=== PATIENT | female | born 1965 | race Caucasian/White ===

== ENCOUNTER 2016-04-29 10:30 | Outpatient (CLI) | payer MEDICAID ==
[~2016-04-29 10:30] MED LIST: BREO ELLIPTA1 POW IH; BUSPAR 5MG TAB5 MG PO; COREG25 M1 PO; DIFLUCAN 100MG100 MG PO; FLUID PILL PO; HYDRALAZINE HCL25 M1 PO; HYDROCODONE-APA1 TA2 PO; HYDROXYZINE 25M25 MG PO; LORATADINE D 101 T24 PO; LOSARTAN POTAS100 MG PO; METRONIDAZOLE500 MG PO; MINOCYCLINE100 MG PO; NEURONTIN800 MG PO; NICOTINE PATCH;21 MG TD; PAXIL20 MG PO; PERCOCET1 TAB PO; PREDNISONE 20MG20 MG PO; PROMETHAZINE HC25 M1 PO; PROTONIX 40MG T40 MG PO; RANITIDINE300 MG PO; SIMVASTATIN10 MG PO; SINGULAIR10 MG PO; TIZANIDINE HCL 44 MG NG; VALIUM 5MG TABLE5 MG PO; VENTOLIN H0.09 MG/AC IH; XANAX 0.5MG TA0.5 MG PO; ZYRTEC10 M2 PO
[2016-04-29 10:45] VITALS: BP 129/81
[2016-04-29 11:15] VITALS: BP 118/70
[2016-04-29 11:35] VITALS: BP 129/81
== END 2016-04-29 11:30 | disposition home or self-care (01) ==
LOC: COP 10:30
DX: D50.9 Iron deficiency anemia, unspecified (principal); E86.0 Dehydration
CPT/HCPCS: J1756

== ENCOUNTER 2017-04-07 15:54 | Emergency (ER) | payer MEDICAID ==
[~2017-04-07] VITALS: Ht 162.6 cm; Wt 78.0 kg
--- OUTSIDE RECORDS SUMMARY | 2017-04-07 16:18 | External Medical Summary Rpt | CCD ---
Author Author , ANABELLE AHN Address Unknown Phone [email or web address] Purpose Continuity of Care Document - 04-02-2017 through 2016 Problems Code Diagnosis DOS Provider Status D72.829 ELEVATED WHITE BLOOD CELL COUNT, UNSPECIFIED K29.70 GASTRITIS, UNSPECIFIED , WITHOUT BLEEDING Results Labs Lab Lab Date Result Refere Interp Status Commen Order Detail nces retati t Range on Hgb A1c MFr Bld (04-02-2017 09:24) Hgb A1c 5.3 % 4.7-6.0 complet MFr 017 ed Bld 09:24 T pallidum IgG Ser Ql IA (04-02-2017 09:24) T NR complet pallidu 017 NONREAC ed m IgG 09:24 TIVE L Ser Ql IA
--- OUTSIDE RECORDS SUMMARY | 2017-04-07 16:18 | External Medical Summary Rpt | CCD ---
Author Author , ANABELLE AHN Address Unknown Phone [email or web address] Purpose Continuity of Care Document - 04-02-2017 [...]
--- OUTSIDE RECORDS SUMMARY | 2017-04-07 16:19 | External Medical Summary Rpt | CCD ---
Demographics Preferred Language Togolese Marital Status Unknown Baptist Affiliation Unknown Race Unknown Ethnic Group Unknown Author Author , ANABELLE AHN Address Unknown Phone Immunization No patient found.
--- OUTSIDE RECORDS SUMMARY | 2017-04-07 16:19 | External Medical Summary Rpt | CCD ---
Author Author [employer] Organization [employer] Address Unknown Phone Unavailable Purpose Continuity of Care Document - through 2016
--- OUTSIDE RECORDS SUMMARY | 2017-04-07 16:19 | External Medical Summary Rpt ---
Author Author ANABELLE Connolly, [employer] Organization [employer] Address Unknown Phone Unavailable
--- OUTSIDE RECORDS SUMMARY | 2017-04-07 16:19 | External Medical Summary Rpt | CCD ---
Demographics Preferred Language Irish Marital Status Unknown Yazidism Affiliation Unknown Race Unknown Ethnic Group Unknown Author Author , ANABELLE AHN Address Unknown Phone Immunization No patient found.
--- OUTSIDE RECORDS SUMMARY | 2017-04-07 16:19 | External Medical Summary Rpt ---
Author Author ANABELLE Connolly, [employer] Organization [employer] Address Unknown Phone Unavailable
--- NOTE | 2017-04-07 17:26 | RADIOLOGY REPORT PS360 ---
CT HEAD W/O CONTRAST HISTORY: BRAIN SHUNT, STIFFNESS, PAINFUL HEADACHE ORDERING PHYSICIAN: Lon Pacheco MD PATIENT AGE: 51 years COMPARISON: 11/24/2016 TECHNIQUE: Axial images obtained without contrast. Brain and bone windows reviewed. FINDINGS: Postsurgical changes are present with prior suboccipital craniotomy with artifact. Right-sided ventriculostomy tube once again noted entering from the right parietal lobe traversing anteriorly through the posterior aspect of the anterior horn of the lateral ventricle and then traversing inferiorly residing in the region of the third ventricle. This is not significantly changed. The right ventricle is smaller than the left however neither ventricle is enlarged. Metallic density is noted at the sylvian aqueduct region.. No intracranial hemorrhage midline shift or mass effect. IMPRESSION: 1. Overall no significant change from 11/24/2016 with no acute finding. 2. Right-sided ventriculostomy tube present as described above have a somewhat unusual course as previously described. No evidence of hydrocephalus. 3. Prior suboccipital craniotomy with postsurgical changes of the posterior cranial fossa
--- NOTE | 2017-04-07 17:31 | RADIOLOGY REPORT PS360 ---
CT CERVICAL SPINE W/O CONT INDICATION: STIFFNESS, PRESSURE TO BACK OF NECK ORDERING PHYSICIAN: Lon Pacheco MD PATIENT AGE: 51 years COMPARISON: None TECHNIQUE: Axial images are obtained without contrast. Sagittal and coronal reformatted images are reviewed as well. FINDINGS: There has been prior suboccipital craniotomy with multiple surgical clips and postsurgical changes at the base of the skull posteriorly. The posterior arch of C1 is incomplete likely secondary to the previous surgery. There is normal alignment. No fracture or dislocation. No significant degenerative change. No lytic or blastic change. A SPINNING LATHE OPERATOR HYDRAULIC shunt traverses the right neck and is partially calcified in the lower neck. Lung apices are clear. Scattered small lymph nodes are present in the neck. IMPRESSION: 1. Status post suboccipital craniotomy with postsurgical changes. 2. Partially calcified shunt traverses the right aspect of the neck. 3. Otherwise negative CT cervical spine without contrast
--- NOTE | 2017-04-07 17:31 | RADIOLOGY REPORT PS360 ---
CT CERVICAL SPINE W/O CONT INDICATION: STIFFNESS, PRESSURE TO BACK OF NECK ORDERING PHYSICIAN: Lon Pacheco MD PATIENT AGE: 51 years COMPARISON: None TECHNIQUE: Axial images are obtained without contrast. Sagittal and coronal reformatted images are reviewed as well. FINDINGS: There has been prior suboccipital craniotomy with multiple surgical clips and postsurgical changes at the base of the skull posteriorly. The posterior arch of C1 is incomplete likely secondary to the previous surgery. There is normal alignment. No fracture or dislocation. No significant degenerative change. No lytic or blastic change. A COMBINING MACHINE OPERATOR shunt traverses the right neck and is partially calcified in the lower neck. Lung apices are clear. Scattered small lymph nodes are present in the neck. IMPRESSION: 1. Status post suboccipital craniotomy with postsurgical changes. 2. Partially calcified shunt traverses the right aspect of the neck. 3. Otherwise negative CT cervical spine without contrast
[2017-04-07] MEDS ORDERED: LEVAQUIN750 MG PO (17:48)
[2017-04-07] MEDS ORDERED: PERCOCET1 TA1 PO (17:48)
--- NOTE | 2017-04-07 17:49 | Emergency Room Report ---
History of Present Illness Time Seen by [id number] Presenting Problem in Triage Pt arrived:Walked Presenting Problem:PT STATES WENT TO BE SEEN [facility] THIS MORNING FOR EVAL FOR NECK PAIN. STATES SHE HAS DJD THAT HAS AFFECTED HER WHOLE SPINE AND THAT THE CERVICal spine DISCOMFORT IS NEW. TO ADD TO THIS, PT HAS A SHUNT PLACED IN HER BRAIN 46 YEARS AGO ON THE RIGHT SIDE. 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 N Clinical Suspician of Infection? N Mental Status: 1 - Regular (Normal Baseline) Sepsis Risk:Low Sepsis Risk Have you (or family members/close friends) recently traveled outside the [place]? N If Yes, where/when: Have you had exposure to infectious disease within the past month? TB? Other? Specify: Source patient, RN notes reviewed, family, RN/MD Exam Limitations no limitations Comment This is a 51-year-old female sent to the emergency room from Dr. Prekins 's office after being seen by the physician photographer assistant for "neck pain" and the worst headache ever. Patient has a history of chronic cervical pain for which she used to be in pain management, for chronic degenerative joint disease. She also has a RADIUS CORNER MACHINE OPERATOR shunt. When I evaluated the patient it appeared that she has actually more of throat pain rather than neck pain. She is complaining with odynophagia, bilateral ear pain. She denies any recent travel, any recent exposure to sick contacts, any cough or shortness of breath. ALLERGIES Coded Allergies: Penicillins (Severe, S-DIFF. BREATHING 04/07/17) Sulfa (Sulfonamide Antibiotics) (04/07/17) acetaminophen (From LORTAB) (NA-NAUSEA/VOMITING 04/07/17) codeine (04/07/17) diphenhydramine (From Benadryl) (04/07/17) hydrocodone (From LORTAB) (NA-NAUSEA/VOMITING 04/07/17) hydromorphone (From Dilaudid) (04/07/17) lisinopril (I-RASH 04/07/17) sulfamethoxazole (From Bactrim) (04/07/17) trimethoprim (From Bactrim) (04/07/17) Home Medications Active Scripts Pantoprazole Sodium (Protonix 40MG TAB) 40 MG PO BID #60 TAB Ref 1 Prov: 09/14/14 Reported Medications Gabapentin (Neurontin) 800 MG PO QID Carvedilol (Coreg) 25 MG PO BID LORATADINE/PSEUDOEPHEDRINE (Loratadine-D 24HR Tablet) 1 T24 PO DAILY TIZANIDINE HCL (Tizanidine Hcl 4 Mg Tablet) 4 MG NG Q8HP PRN MUSCLE SPASMS Simvastatin 10 MG PO DAILY Hydroxyzine Pamoate (Hydroxyzine) 50 MG PO BID PROMETHAZINE HCL (Promethazine 25mg Tab) 12.5 MG PO BIDP PRN NAUSEA/ VOMITING PAROXETINE (Paroxetine HCl) 10 MG PO DAILY Buspirone Hcl (Buspirone HCl) 5 MG PO TID ALBUTEROL (Ventolin Hfa) 2 PUFFS IH Q4HP PRN BREATHING FLUTICASONE/VILANTEROL (Breo Ellipta 100-25 Mcg INH) 1 POW IH DAILY Alprazolam (Xanax 0.5MG) 0.5 MG PO PRN PRN ANXIETY Montelukast Sodium (Singulair) 10 MG PO QHS History Medical History General CAD? No Angina: Yes OR: No Hypertension? Yes Hyperlipidemia? Yes CHF? No DVT? No PE? No COPD? Yes Asthma? Yes Anemia? No GERD? Yes Gastric ulcers? No GI Bleed? No Hernia? No Thyroid Problems? No Hypothyroidism? No CVA? No Seizures? No Diabetes? No Insulin Dependent: No Insulin Pump: No Home FSBS? No Renal Insuffiency? No End Stage Renal Disease? No UTI? Yes Stones? No GB Disease: No Nephritic Syndrome? No Asplenia? No Hepatitis? No Sickle Cell Disease? No Arthritis? Yes Migraines? Yes Cataracts? No Glaucoma? No MRSA? No HIV? No TB? No Anxiety? Yes Depression? Yes Cancer? No More? Yes Additional hx: SHUNT IN BRAIN, PLACED AT AGE 4 Immunization Hx Ped.Immunizations UTD Yes DT/Tetanus 5-10 Years Ago Flu Refused Pneumonia Refuses Surgical Hx Previous Surgery?Y GALLBLADDER TUBAL LIGATION BRAIN SURGERY AT AGE 4 TUBAL SHUNT IN BRAIN DIVER TENDER Hx LMP N/A Family History Family Hx Diabetes Yes CAD No Hypertension Yes Hyperlipidemia Yes Cancer Yes TB No Social History Smoking Hx Smoker: Current Every Day Smoker Tobacco: Yes Type Cigarettes Packs/day < 1 Pack Alcohol Alcohol: No Review of Systems All Other Systems Reviewed and Negative ENT throat pain. Musculoskeletal see HPI, neck pain Physical Exam Vital Signs Vital Signs Date Time Temp Pulse Resp B/P Pulse O2 O2 Flow FiO2 Ox Delivery Rate 04/07 1755 98.3 90 18 140/70 99 04/07 1640 18 04/07 1602 98.3 90 18 142/100 99 General Appearance normal appearance, WD/WN, moderate distress Ear, Nose, Throat hearing grossly normal, nasal congestion, pharyngeal erythema Neck supple, full range of motion, limited range of motion (due to pain), tender lateral (consistent with torticollis), midline cervical surgical scar consistent with RADIUS CORNER MACHINE OPERATOR shunt placement Respiratory Status Yes: trachea midline, chest symmetrical, non tender chest. No: respiratory distress. Lung Sounds bilateral: normal breath sounds, lungs clear. Cardiovascular normal exam, regular rate/rhythm, no peripheral edema, no gallop, no JVD, no murmur, no rub, normal peripheral pulses Gastrointestinal normal bowel sounds, normal exam, non tender, soft, no organomegaly Extremities non-tender, normal range of motion, normal inspection Neurologic alert, peer support specialist II-XII nml as tested, normal exam, oriented x 3 Mental status normal mood/affect Skin intact, normal color, warm/dry Medical Decision Making LABS/Meds/Orders Pt receiving controlled substance in ED? Yes [place] was queried for this patient? No Reason not queried - hospital network issues Risks/benefits of using a controlled substance for treatment were discussed w/pt by me Comment [id number]-upon reevaluation patient appears medically stable, with neck pain significantly improved. Advised patient of results obtained, need to follow-up with PCP if not better per discharge instructions. Patient is neurologically intact, has no stiff neck on no fever, no chills. I think most of the problem is patient having pharyngitis, and she will be started on antibiotics RIGHT away. Additionally she has a flareup of her chronic neck pain which was addressed today, will also write her a few days of pain pills. Results/Orders Orders Procedure Date/time Status DIET-NOTHING BY MOUTH 04/[address] HEAD REQ 04/[address] SCAN REQUEST 04/07 1610 Complete XRAY/CT/US XRAY/CT/US [address] interpretation by discussed w/radiologist CT Results normal/NAD, no fracture seen, no acute ICH XRAY/CT/US 2 CT C-spine CT interpretation by discussed w/radiologist CT Results abnormal Comment See radiologist's report Departure Departure Time of Disposition 1744 Disposition DC Home or Self Care(routine) Clinical Impression Primary Impression: Headache Qualifiers: Headache type: tension-type Headache chronicity pattern: acute headache Intractability: not intractable Qualified Code: G44.209 - Tension-type headache, unspecified, not intractable Secondary Impressions: Pharyngitis Qualifiers: Pharyngitis/tonsillitis etiology: unspecified etiology Qualified Code: J02.9 - Acute pharyngitis, unspecified Torticollis Condition STABLE Referrals PATY SAWYER (Family): [facility] Patient Instructions DI for Pharyngitis/Tonsillopharyngitis -- Child, DI for Torticollis Additional Instructions Please take the medications prescribed as directed, follow-up with Paty Lunsford in the morning if not better. Discharge Counseling Counseled pt/family regarding diagnosis, test results, medications/RX, home care, follow up needs Comment Please take the medications prescribed as directed, follow-up with Paty Lunsford in the morning if not better. Prescriptions Current Visit Scripts Levofloxacin (Levaquin 750MG Tab) 750 MG PO DAILY #7 TAB OXYCODONE HCL/ACETAMINOPHEN (Percocet 10-325 MG Tablet) 1 TAB PO QIDP PRN pain #10 TAB ED Critical Care Critical Care No at 0936
--- NOTE | 2017-04-07 17:49 | Emergency Room Report ---
History of Present Illness Time Seen by 2395 Presenting Problem in Triage Pt arrived:Walked Presenting Problem:PT STATES WENT TO BE SEEN [facility] THIS MORNING FOR EVAL FOR NECK PAIN. STATES SHE HAS DJD THAT HAS AFFECTED HER WHOLE SPINE AND THAT THE CERVICal spine DISCOMFORT IS NEW. TO ADD TO THIS, PT HAS A SHUNT PLACED IN HER BRAIN 46 YEARS AGO ON THE RIGHT SIDE. 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 N Clinical Suspician of Infection? N Mental Status: 1 - Regular (Normal Baseline) Sepsis Risk:Low Sepsis Risk Have you (or family members/close friends) recently traveled outside the [place]? N If Yes, where/when: Have you had exposure to infectious disease within the past month? TB? Other? Specify: Source patient, RN notes reviewed, family, RN/MD Exam Limitations no limitations Comment This is a 51-year-old female sent to the emergency room from Dr. Perkins 's office after being seen by the physician respiratory equipment assistant for "neck pain" and the worst headache ever. Patient has a history of chronic cervical pain for which she used to be in pain management, for chronic degenerative joint disease. She also has a HARDWARE PRESS OPERATOR shunt. When I evaluated the patient it appeared that she has actually more of throat pain rather than neck pain. She is complaining with odynophagia, bilateral ear pain. She denies any recent travel, any recent exposure to sick contacts, any cough or shortness of breath. ALLERGIES Coded Allergies: Penicillins (Severe, S-DIFF. BREATHING 04/07/17) Sulfa (Sulfonamide Antibiotics) (04/07/17) acetaminophen (From LORTAB) (NA-NAUSEA/VOMITING 04/07/17) codeine (04/07/17) diphenhydramine (From Benadryl) (04/07/17) hydrocodone (From LORTAB) (NA-NAUSEA/VOMITING 04/07/17) hydromorphone (From Dilaudid) (04/07/17) lisinopril (I-RASH 04/07/17) sulfamethoxazole (From Bactrim) (04/07/17) trimethoprim (From Bactrim) (04/07/17) Home Medications Active Scripts Pantoprazole Sodium (Protonix 40MG TAB) 40 MG PO BID #60 TAB Ref 1 Prov: 09/14/14 Reported Medications Gabapentin (Neurontin) 800 MG PO QID Carvedilol (Coreg) 25 MG PO BID LORATADINE/PSEUDOEPHEDRINE (Loratadine-D 24HR Tablet) 1 T24 PO DAILY TIZANIDINE HCL (Tizanidine Hcl 4 Mg Tablet) 4 MG NG Q8HP PRN MUSCLE SPASMS Simvastatin 10 MG PO DAILY Hydroxyzine Pamoate (Hydroxyzine) 50 MG PO BID PROMETHAZINE HCL (Promethazine 25mg Tab) 12.5 MG PO BIDP PRN NAUSEA/ VOMITING PAROXETINE (Paroxetine HCl) 10 MG PO DAILY Buspirone Hcl (Buspirone HCl) 5 MG PO TID ALBUTEROL (Ventolin Hfa) 2 PUFFS IH Q4HP PRN BREATHING FLUTICASONE/VILANTEROL (Breo Ellipta 100-25 Mcg INH) 1 POW IH DAILY Alprazolam (Xanax 0.5MG) 0.5 MG PO PRN PRN ANXIETY Montelukast Sodium (Singulair) 10 MG PO QHS History Medical History General CAD? No Angina: Yes SC: No Hypertension? Yes Hyperlipidemia? Yes CHF? No DVT? No PE? No COPD? Yes Asthma? Yes Anemia? No GERD? Yes Gastric ulcers? No GI Bleed? No Hernia? No Thyroid Problems? No Hypothyroidism? No CVA? No Seizures? No Diabetes? No Insulin Dependent: No Insulin Pump: No Home FSBS? No Renal Insuffiency? No End Stage Renal Disease? No UTI? Yes Stones? No GB Disease: No Nephritic Syndrome? No Asplenia? No Hepatitis? No Sickle Cell Disease? No Arthritis? Yes Migraines? Yes Cataracts? No Glaucoma? No MRSA? No HIV? No TB? No Anxiety? Yes Depression? Yes Cancer? No More? 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 Musculoskeletal see HPI, neck pain Physical Exam Vital Signs Vital Signs Date Time Temp Pulse Resp B/P Pulse O2 O2 Flow FiO2 Ox Delivery Rate 04/07 1755 98.3 90 18 140/70 99 04/07 1640 18 04/07 1602 98.3 90 18 142/100 99 General Appearance normal appearance, WD/WN, moderate distress Ear, Nose, Throat hearing grossly normal, nasal congestion, pharyngeal erythema Neck supple, full range of motion, limited range of motion (due to pain), tender lateral (consistent with torticollis), midline cervical surgical scar consistent with HARDWARE PRESS OPERATOR shunt placement Respiratory Status Yes: trachea midline, chest symmetrical, non tender chest. No: respiratory distress. Lung Sounds bilateral: normal breath sounds, lungs clear. Cardiovascular normal exam, regular rate/rhythm, no peripheral edema, no gallop, no JVD, no murmur, no rub, normal peripheral pulses Gastrointestinal normal bowel sounds, normal exam, non tender, soft, no organomegaly Extremities non-tender, normal range of motion, normal inspection Neurologic alert, goat herder II-XII nml as tested, normal exam, oriented x 3 Mental status normal mood/affect Skin intact, normal color, warm/dry Medical Decision Making LABS/Meds/Orders Pt receiving controlled substance in ED? Yes [place] was queried for this patient? No Reason not queried - hospital network issues Risks/benefits of using a controlled substance for treatment were discussed w/pt by me Comment 6622-upon reevaluation patient appears medically stable, with neck pain significantly improved. Advised patient of results obtained, need to follow-up with PCP if not better per discharge instructions. Patient is neurologically intact, has no stiff neck on no fever, no chills. I think most of the problem is patient having pharyngitis, and she will be started on antibiotics RIGHT away. Additionally she has a flareup of her chronic neck pain which was addressed today, will also write her a few days of pain pills. Results/Orders Orders Procedure Date/time Status DIET-NOTHING BY MOUTH 04/[address] HEAD REQ 04/[address] SCAN REQUEST 04/07 1610 Complete XRAY/CT/US XRAY/CT/US [address] interpretation by discussed w/radiologist CT Results normal/NAD, no fracture seen, no acute ICH XRAY/CT/US 2 CT C-spine CT interpretation by discussed w/radiologist CT Results abnormal Comment See radiologist's report Departure Departure Time of Disposition 1744 Disposition DC Home or Self Care(routine) Clinical Impression Primary Impression: Headache Qualifiers: Headache type: tension-type Headache chronicity pattern: acute headache Intractability: not intractable Qualified Code: G44.209 - Tension-type headache, unspecified, not intractable Secondary Impressions: Pharyngitis Qualifiers: Pharyngitis/tonsillitis etiology: unspecified etiology Qualified Code: J02.9 - Acute pharyngitis, unspecified Torticollis Condition STABLE Referrals PATY SAWYER (Family): [facility] Patient Instructions DI for Pharyngitis/Tonsillopharyngitis -- Child, DI for Torticollis Additional Instructions Please take the medications prescribed as directed, follow-up with Paty Lunsford in the morning if not better. Discharge Counseling Counseled pt/family regarding diagnosis, test results, medications/RX, home care, follow up needs Comment Please take the medications prescribed as directed, follow-up with Paty Lunsford in the morning if not better. Prescriptions Current Visit Scripts Levofloxacin (Levaquin 750MG Tab) 750 MG PO DAILY #7 TAB OXYCODONE HCL/ACETAMINOPHEN (Percocet 10-325 MG Tablet) 1 TAB PO QIDP PRN pain #10 TAB ED Critical Care Critical Care No at 0936
[2017-04-07 17:55] VITALS: BP 140/70
== END 2017-04-07 17:57 | disposition home or self-care (01) ==
LOC: ER 15:54
DX: G44.209 Tension-type headache, unspecified, not intractable (principal); J02.9 Acute pharyngitis, unspecified; M43.6 Torticollis; Z79.899 Other long term (current) drug therapy; I10 Essential (primary) hypertension; Z79.51 Long term (current) use of inhaled steroids; Z88.6 Allergy status to analgesic agent; Z88.2 Allergy status to sulfonamides; Z88.8 Allergy status to other drugs, medicaments and biological substances